=== PATIENT | female | born 1950 | race Hispanic/Latino ===

== ENCOUNTER → 2018-04-13 | Outpatient (CLI) | payer MEDICARE ==
--- NOTE | 2018-04-13 11:15 | Diagnostic Imaging Report ---
EXAM: Cervical spine radiographs- 4 views INDICATION: Cervical spin pain. COMPARISON: None FINDINGS: C1 to the lower aspect of C7 is visualized on the lateral radiograph. BONES: The alignment is within normal limits. C1-C2 alignment is maintained. No acute displaced fractures. Vertebral body heights are preserved. DISCS: Mild degenerative disc changes, most pronounced at C5-C6 and C6-C7. Mild bony neural foraminal stenosis at C5-C6 and C6-C7. JOINTS: Moderate facet degenerative changes, most pronounced at C4-C5, C5-C6, and C6-C7. SOFT TISSUES: Unremarkable IMPRESSION: No acute radiographic abnormality. Mild degenerative disc and moderate facet degenerative changes in the cervical spine with associated mild bony neural foraminal stenosis at C5-C6 and C6-C7. Signed by: Dr. Reta Xiao MD on 04/13/2018 11:12 AM
--- NOTE | 2018-04-13 12:17 | Diagnostic Imaging Report ---
EXAM: Lumbar spine radiographs-5 views; left hip radiographs-2 views INDICATION: Lower back and left hip pain. COMPARISON: None FINDINGS: Lumbar spine: No evidence of acute fracture or malalignment. There are mild degenerative disc and facet degenerative changes, most pronounced at L5-S1. There is a partially threaded screw which transfixes the left sacroiliac joint. Left hip: There are mild to moderate left hip degenerative changes with joint space narrowing and bony osteophyte formation. No evidence of acute fracture or malalignment. IMPRESSION: No acute radiographic abnormality. Mild degenerative changes of the lower lumbar spine. Mild to moderate degenerative changes of the left hip. Signed by: Dr. Reta Xiao MD on 04/13/2018 12:14 PM
== END ==
LOC: RAD 10:00
PROVIDERS: ATTEND Family Medicine
DX: M25.552 Pain in left hip (principal); M54.2 Cervicalgia; M54.5 Low back pain
CPT/HCPCS: 72050; 72110

== ENCOUNTER → 2018-05-31 | Outpatient (CLI) | payer MEDICARE, OTHER ==
--- NOTE | 2018-05-31 15:04 | Diagnostic Imaging Report ---
History: Pain left leg for 2 months Comparison studies: None Technique: Sagittal, coronal and axial T2 , sagittal T1 and IR, axial spin density oblique. Intravenous contrast: None Findings: Number of lumbar vertebral bodies:5 Alignment: Normal lordosis.No scoliosis. Soft tissues: No T2 hyperintense inflammatory changes. Paraspinal muscles: No signal abnormalities. No atrophy. Lower thoracic cord:Normal in signal and morphology. The tip of the conus is at L1 mid level. Cauda equina: No masses. No arachnoiditis. Vertebrae: Normal in height and signal intensity. No compression fractures, infection or neoplasm. Degenerative changes: Partially visualized disc degeneration with loss of T2 signal and decreased intervertebral space at the lower thoracic spine. L1-L2: Disc degeneration with loss of T2 signal. Patent canal and foramina. L2-L3: Disc degeneration with loss of T2 signal. Asymmetric left disc bulge mild facet hypertrophy without significant canal stenosis or foraminal narrowing. L3-L4: Disc degeneration with loss of T2 signal and decreased intervertebral space. Diffuse disc bulge with superimposed central and left subarticular disc protrusion and mild facet hypertrophy results in mild canal stenosis and mild right foraminal narrowing. L4-L5: Disc degeneration with T2 signal. Diffuse disc bulge with superimposed left subarticular inferiorly migrated disc extrusion, mild facet hypertrophy and ligamentum flavum thickening results in no significant central canal stenosis and obliteration of the left subarticular recesses with possible impingement on the descending L5 nerve root. L5-S1: Disc degeneration with loss of T2 signal. Diffuse disc bulge and moderate to severe facet hypertrophy results in no significant canal stenosis or foraminal narrowing. Trace of fluid at the bilateral facet joints. Additional findings: Metallic screw traversing the left iliac bone IMPRESSION: Left subarticular inferiorly migrated disc extrusion at L4-L5 results in impingement of the descending L5 nerve root. Other degenerative changes without significant (moderate to severe) canal stenosis or foraminal narrowing. Severe facet hypertrophy at L5-S1 with bilateral mild synovitis changes Signed by: DR Lex Willams M.D. on 05/31/2018 3:01 PM
== END ==
LOC: MRI 08:35
PROVIDERS: ATTEND Family Medicine
DX: M54.16 Radiculopathy, lumbar region (principal)
CPT/HCPCS: 72148

== ENCOUNTER → 2020-10-22 | Outpatient (CLI) | payer MEDICARE, OTHER ==
[~2020-10-22] MED LIST: ACETAMINOPHEN650 M1 PO; FLUOXETINE HCL20 MG PO; METOPROLOL SUCC25 MG PO; MOTRIN200 MG PO; NEURONTIN400 MG PO; NEXIUM40 MG PO; OLMESARTAN-HCT1 EAC2 PO; OMEPRAZOLE40 MG PO
== END ==
LOC: RAD 14:29
PROVIDERS: ATTEND Family Medicine
DX: M79.641 Pain in right hand (principal); S52.501A Unspecified fracture of the lower end of right radius, initial encounter for closed fracture

== ENCOUNTER → 2020-10-28 | Day surgery (SDC) | payer MEDICARE, OTHER ==
[2020-10-27 09:58] LABS: ANION GAP 14.7 mmol/L (8-16); CALCIUM 9.4 mg/dL (8.4-10.2); CREATININE, SERUM 0.79 mg/dL (0.57-1.11); POTASSIUM 4.7 mmol/L (3.5-5.1)
[2020-10-27 10:06] LABS: BASOPHILS % 0.3 % (0.0-1.0); EOSINOPHILS # (AUTO) 0.1 (0.0-0.4); EOSINOPHILS % 1.4 % (0.0-6.0); HEMATOCRIT 35.9 % (34.2-44.1); HEMOGLOBIN 11.4 g/dL (12.0-16.0); LYMPHOCYTES # (AUTO) 1.9 (1.0-3.2); LYMPHOCYTES % 29.1 % (18.0-39.1); MEAN CORPUSCULAR HEMOGLOBIN 30.3 pg (28-32); MEAN CORPUSCULAR HGB CONC 31.8 g/dL (31-35); MEAN CORPUSCULAR VOLUME 95.5 fL (81-99); MONOCYTES # (AUTO) 0.6 (0.2-0.8); MONOCYTES % 8.3 % (4.4-11.3); NEUTROPHILS % 60.6 % (38.7-80.0); PLATELET COUNT 279 x10e3/uL (140-360); RED BLOOD COUNT 3.76 x10e6/uL (3.6-5.1); RED CELL DISTRIBUTION WIDTH 12.6 % (11.7-14.4)
[~2020-10-28] MED LIST changes: +ACETAMINOPHEN-1 EAC4 PO; +ACETAMINOPHEN/CODEINE 300MG - 30MG TAB ONE; +BUPIVACAINE 0.25% 30ML SDV ONE; +HYDROMORPHONE 1MG/1ML INJ ONE; +SODIUM CHLORIDE 0.9% 50ML 100 ML ONE; +TRAZODONE HCL100 MG PO
[2020-10-28 11:10] VITALS: BP 129/71
== END | disposition home or self-care (01) ==
LOC: OR 06:06
PROVIDERS: ATTEND Specialist
DX: S52.531A Colles' fracture of right radius, initial encounter for closed fracture (principal); M19.90 Unspecified osteoarthritis, unspecified site; I10 Essential (primary) hypertension; E78.5 Hyperlipidemia, unspecified; K21.9 Gastro-esophageal reflux disease without esophagitis; K29.70 Gastritis, unspecified, without bleeding; F32.9 Major depressive disorder, single episode, unspecified; F41.9 Anxiety disorder, unspecified; W18.39XA Other fall on same level, initial encounter; Y92.009 Unspecified place in unspecified non-institutional (private) residence as the place of occurrence of the external cause; Z01.810 Encounter for preprocedural cardiovascular examination; Z01.812 Encounter for preprocedural laboratory examination; Z01.818 Encounter for other preprocedural examination; Z20.822 Contact with and (suspected) exposure to COVID-19
CPT/HCPCS: 25606; 36415; 71046; 80048; 85025; 93005; C1713; J0690; J1170; U0002; 76000

== ENCOUNTER → 2021-04-09 | Outpatient (CLI) | payer MEDICARE, OTHER ==
[~2021-04-09] MED LIST changes: -ACETAMINOPHEN/CODEINE 300MG - 30MG TAB ONE; -BUPIVACAINE 0.25% 30ML SDV ONE; -HYDROMORPHONE 1MG/1ML INJ ONE; -SODIUM CHLORIDE 0.9% 50ML 100 ML ONE
== END ==
LOC: RAD 09:53
PROVIDERS: ATTEND Family Medicine
DX: M25.512 Pain in left shoulder (principal); M25.511 Pain in right shoulder

== ENCOUNTER → 2021-04-16 | Outpatient (CLI) | payer MEDICARE, OTHER | LOC: RAD 11:50 | PROVIDERS: ATTEND Family Medicine | DX: Z01.810 Encounter for preprocedural cardiovascular examination (principal) | CPT/HCPCS: 71046 ==

== ENCOUNTER → 2021-10-29 | Outpatient (CLI) | payer MEDICARE ==
[~2021-10-29] MED LIST changes: +ESCITALOPRAM OX20 MG PO; +[UNRECOGNIZED DRUG - OTHER] PO
== END ==
LOC: DX 10:58
PROVIDERS: ATTEND Family Medicine
DX: G50.1 Atypical facial pain (principal); K44.9 Diaphragmatic hernia without obstruction or gangrene; K21.9 Gastro-esophageal reflux disease without esophagitis
CPT/HCPCS: 74246

== ENCOUNTER → 2021-11-04 | Outpatient (CLI) | payer MEDICARE | LOC: RAD 16:40 | PROVIDERS: ATTEND Family Medicine | DX: R05.3 Chronic cough (principal) | CPT/HCPCS: 71046 ==

== ENCOUNTER 2022-03-16 07:25 | Emergency (ER) | payer MEDICARE ==
[~2022-03-16] VITALS: Ht 167.6 cm; Wt 86.2 kg
[2022-03-16] MEDS ORDERED: MUCINEX DM ER1 EACH PO (09:35)
== END 2022-03-16 09:41 | disposition home or self-care (01) ==
LOC: ER 07:29
DX: R05.9 Cough, unspecified (principal); R51.9 Headache, unspecified; I10 Essential (primary) hypertension; K21.9 Gastro-esophageal reflux disease without esophagitis; Z20.822 Contact with and (suspected) exposure to COVID-19
CPT/HCPCS: 71045; 99283; U0002

== ENCOUNTER 2022-05-31 08:00 | Outpatient (RCR) | payer MEDICARE ==
[~2022-05-31 08:00] MED LIST changes: +MUCINEX DM ER1 EACH PO
== END 2022-06-05 ==
LOC: PT 08:00
PROVIDERS: ATTEND Specialist
DX: M17.12 Unilateral primary osteoarthritis, left knee (principal); Z96.651 Presence of right artificial knee joint

== ENCOUNTER 2022-11-30 10:00 | Outpatient (RCR) | payer MEDICARE | END 2022-12-06 | LOC: PT 10:00 | PROVIDERS: ATTEND Physician Assistant | DX: Z47.1 Aftercare following joint replacement surgery (principal); Z96.652 Presence of left artificial knee joint; M62.81 Muscle weakness (generalized); M25.562 Pain in left knee; M25.662 Stiffness of left knee, not elsewhere classified ==

== ENCOUNTER 2024-01-02 11:00 | Outpatient (RCR) | payer OTHER, MEDICARE | END 2024-01-06 | LOC: OT 11:00 | PROVIDERS: ATTEND Physician Assistant | DX: S52.131D Displaced fracture of neck of right radius, subsequent encounter for closed fracture with routine healing (principal); S52.041D Displaced fracture of coronoid process of right ulna, subsequent encounter for closed fracture with routine healing; M25.521 Pain in right elbow; M25.621 Stiffness of right elbow, not elsewhere classified; R53.1 Weakness ==

== ENCOUNTER 2024-01-29 09:00 | Outpatient (RCR) | payer OTHER, MEDICARE | END 2024-02-06 | LOC: OT 09:00 | PROVIDERS: ATTEND Physician Assistant | DX: S52.131D Displaced fracture of neck of right radius, subsequent encounter for closed fracture with routine healing (principal); S52.041D Displaced fracture of coronoid process of right ulna, subsequent encounter for closed fracture with routine healing; M25.521 Pain in right elbow; M25.621 Stiffness of right elbow, not elsewhere classified; R53.1 Weakness ==